=== PATIENT | female | born 1990 | race Hispanic/Latino ===

== ENCOUNTER 2017-12-31 14:59 | Emergency (ER) | payer BC, MEDICAID, OTHER ==
[~2017-12-31 14:59] MED LIST: PREN1TAB80 PO
[2017-12-31] MEDS ORDERED: FLUORESCEIN SODIUM 0.6 MG STRIP ONE (15:30)
[2017-12-31] MEDS ORDERED: TETRACAINE HCL 0.5% 4 ML OPHTH SOLN ONE (15:30)
[2017-12-31] MEDS ORDERED: GENTAMICIN SULFATE 0.3% 5ML DROPS ONE (15:30)
[2017-12-31] MEDS ORDERED: HYDROCODONE/ACETAMINOPHEN 10/325 MG TAB ONE (15:31)
[2017-12-31] MEDS ORDERED: NA BORATE/BORIC AC/H2O/NACL 120 ML OPHTH IRRIG SOLN ONE (15:36)
== END 2017-12-31 16:01 | disposition home or self-care (01) ==
LOC: EDH 14:59
DX: S05.02XA Injury of conjunctiva and corneal abrasion without foreign body, left eye, initial encounter (principal); I34.1 Nonrheumatic mitral (valve) prolapse; X58.XXXA Exposure to other specified factors, initial encounter; Y93.89 Activity, other specified; Y92.89 Other specified places as the place of occurrence of the external cause; Y99.8 Other external cause status

== ENCOUNTER 2022-04-14 18:05 | Emergency (ER) | payer OTHER | END 2022-04-14 18:36 | disposition left against medical advice (07) | LOC: EDH 18:05 | DX: R51.9 Headache, unspecified (principal); Z53.21 Procedure and treatment not carried out due to patient leaving prior to being seen by health care provider ==

== ENCOUNTER 2022-07-19 11:58 | Emergency (ER) | payer MEDICAID, OTHER ==
[~2022-07-19] VITALS: Ht 165.1 cm; Wt 81.6 kg
[2022-07-19 12:40] LABS: APPEARANCE,URINE CLOUDY (CLEAR); BILIRUBIN,URINE NEGATIVE (NEGATIVE); COLOR,URINE LIGHT-YELLOW (YELLOW); GLUCOSE, URINE (UA) NEGATIVE (NEGATIVE); KETONES,URINE NEGATIVE (NEGATIVE); LEUKOCYTE ESTERASE ,URINE 500 Leu/uL (NEGATIVE); NITRATE,URINE NEGATIVE (NEGATIVE); OCCULT BLOOD,URINE NEGATIVE (NEGATIVE); PROTEIN,URINE NEGATIVE (NEGATIVE); UROBILINOGEN,URINE 0.2 mg/dL (0.2-1.0)
[2022-07-19 12:46] LABS: BACTERIA,URINE FEW /HPF (None Seen); MUCUS,URINE RARE LPF (None Seen); RBC,URINE 0-1 /HPF (0-1); SQUAMOUS EPITHELIAL CELL,UR MANY /HPF (0-2); WBC,URINE 26-50 /HPF (0-1)
[2022-07-19] MEDS ORDERED: CEPH500B PO (12:49)
[2022-07-19 12:52] LABS: HCG,QUALITATIVE URINE POSITIVE (NEGATIVE)
[2022-07-19] MEDS ORDERED: 0.9%NACL 1000ML 1,000 ML IV ONE (13:00)
[2022-07-19] MEDS ORDERED: ONDANSETRON 4MG INJ IVP ONE (13:00)
[2022-07-19] MEDS ORDERED: CEFTRIAXONE 1G VIAL IV ONE (13:00)
[2022-07-19 13:02] VITALS: BP 122/70
[2022-07-19] MEDS ORDERED: ONDANSETRON ODT 4MG TAB ONE (13:27)
[2022-07-19] MEDS ORDERED: ONDANSETRON ODT 4MG TAB SL ONE (13:30)
== END 2022-07-19 13:30 | disposition home or self-care (01) ==
LOC: EDH 11:58
DX: N39.0 Urinary tract infection, site not specified (principal); Z98.890 Other specified postprocedural states
CPT/HCPCS: 99283; 96374; 87088; 81001; 81025; J0696